=== PATIENT | male | born 1935 | race Caucasian/White ===

== ENCOUNTER 2018-10-17 17:09 | Inpatient (IN) | payer MEDICARE, OTHER ==
[2018-10-17] MEDS ORDERED: DILTIAZEM 25 MG INJ (17:13)
[2018-10-17] MEDS: DILTIAZEM 25 MG INJ IV ×2 (17:45→18:16)
[2018-10-17 17:48] LABS: ADD MAN DIFF? NO
[2018-10-17 17:50] LABS: BASOPHILS % 0.2 % (0.0-2.0); HEMATOCRIT 25.6 % (42.0-52.0); HEMOGLOBIN 8.2 g/dl (14.0-18.0); LYMPHOCYTES # 1.2 10^3/ul (0.8-2.9); LYMPHOCYTES % 9.6 % (15.0-51.0); MEAN CORPUSCULAR HEMOGLOBIN 33.6 pg (29.0-33.0); MEAN CORPUSCULAR VOLUME 104.9 fl (82.0-101.0); MEAN PLATELET VOLUME 10.3 fl (7.4-10.4); MONOCYTE # 1.4 10^3/ul (0.3-0.9); MONOCYTES % 11.3 % (0.0-11.0); NEUTROPHIL # 9.4 10^3/ul (1.6-7.5); NEUTROPHILS % 74.5 % (39.0-77.0); NUCLEATED RED BLOOD CELLS # 0.1 10^3/ul (0.0-0.0); NUCLEATED RED BLOOD CELLS% 0.7 /100WBC (0.0-0.0); PLATELET COUNT 524 10^3/UL (140-415); POSITIVE DIFF @See below; RED BLOOD COUNT 2.44 10^6/ul (4.70-6.10); RED CELL DISTRIBUTION WIDTH 14.3 % (11.5-14.5)
[2018-10-17 17:50] LABS: WHITE BLOOD COUNT 12.6 10^3/ul (4.8-10.8)
[2018-10-17 18:12] LABS: ALANINE AMINOTRANSFERASE 35 IU/L (13-69); ALBUMIN 2.6 g/dl (3.3-4.9); ALBUMIN/GLOBULIN RATIO 1.04; ALKALINE PHOSPHATASE 61 IU/L (42-121); ANION GAP 15 (5-13); ASPARTATE AMINO TRANSFERASE 22 IU/L (15-46); BILIRUBIN,INDIRECT 0.1 mg/dl (0-1.1); BILIRUBIN,TOTAL 0.1 mg/dl (0.2-1.3); BLOOD UREA NITROGEN 88 mg/dl (7-20); CALCIUM 7.8 mg/dl (8.4-10.2); CARBON DIOXIDE 11 mmol/L (21-31); CHLORIDE 111 mmol/L (97-110); CREATININE 4.63 mg/dl (0.61-1.24); GLUCOSE 94 mg/dl (70-220); POTASSIUM 4.1 mmol/L (3.5-5.1); SODIUM 137 mmol/L (135-144); TOTAL PROTEIN 5.1 g/dl (6.1-8.1)
[2018-10-17 18:37] LABS: B-TYPE NATRIURETIC PEPTIDE 152000 PG/ML (0-450)
[2018-10-17 19:27] LABS: Blood Gas IEPAP 15/5; Blood Gas PS 10; MODE MASK - BIPAP; MetHgb Venous 0.3 %; Sample Type Blood venous; Site VENOUS LINE; Venous COHb 0.2 %; Venous Fraction OxyHgb 88.7 %; Venous Oxygen Sat 89.1 mmHG (55.0-75.0); Venous Total Hemglobin 9.1 g/dl
[2018-10-17 19:29] LABS: PROTIME 68.5 Sec (11.9-14.9); PT RATIO 5.4
[2018-10-17] MEDS: FUROSEMIDE 20 MG INJ IV (19:30)
[2018-10-17 19:36] LABS: INR 7.76
[2018-10-17] MEDS ORDERED: DOCUSATE SODIUM 100 MG CAP PO (20:00)
[2018-10-17] MEDS ORDERED: BISACODYL (EC) 5 MG TAB PO (20:00)
[2018-10-17] MEDS ORDERED: ONDANSETRON 4 MG INJ IV (20:00)
[2018-10-17] MEDS ORDERED: morphine 2 MG INJ IV (20:00)
[2018-10-17] MEDS ORDERED: NACL 0.9% 3 ML SYG IV (20:00)
[2018-10-17 20:13] LABS: ADD UMIC YES; UR AMORPHOUS CRYSTAL FEW /HPF (NONE SEEN); UR ASCORBIC ACID 20 mg/dL (NEGATIVE); UR BACTERIA FEW /HPF (NONE SEEN); UR BILIRUBIN (Dip) NEGATIVE (NEGATIVE); UR BLOOD (Dip) NEGATIVE (NEGATIVE); UR CLARITY CLOUDY (CLEAR); UR COLOR YELLOW (YELLOW); UR GLUCOSE (Dip) NEGATIVE (NEGATIVE); UR KETONES (Dip) NEGATIVE (NEGATIVE); UR LEUKOCYTE ESTERASE (Dip) NEGATIVE Leu/ul (NEGATIVE); UR MUCUS FEW /HPF (NONE SEEN); UR NITRITE (Dip) NEGATIVE (NEGATIVE); UR RBC 4 /HPF (0-5); UR SPECIFIC GRAVITY (Dip) 1.015 (1.003-1.030); UR TOTAL PROTEIN (Dip) 3+ mg/dl (NEGATIVE); UR UROBILINOGEN (Dip) NEGATIVE (NEGATIVE); UR WBC 10 /HPF (0-5)
[2018-10-17 20:16] LABS: SODIUM,URINE RANDOM < 13 mmol/L (30-90)
[2018-10-17 20:33] LABS: ANISOCYTOSIS 1+ (0-0); BAND NEUTROPHILS #M 2.1 10^3/ul (0.0-0.6); BAND NEUTROPHILS % (M) 17 % (0-4); BURR CELLS 3+ (0-0); ERYTHROBLAST% (NRBC) (M) 1 % (0-0); GIANT THROMBO% (M) 1 % (0-0); HYPOCHROMASIA 1+ (0-0); LYMPHOCYTES #M 1.6 10^3/ul (0.8-2.9); LYMPHOCYTES % (M) 13 % (15-51); METAMYELOCYTES #M 0.1 10^3/ul (0.0-0.0); METAMYELOCYTES %M 1 % (0-0); MONOCYTE #M 1.6 10^3/ul (0.3-0.9); MONOCYTES % (M) 13 % (0-11); MYELOCYTES #M 0.1 10^3/ul (0.0-0.0); MYELOCYTES % (M) 1 % (0-0); PLATELET ESTIMATE NORMAL; POIKILOCYTOSIS 3+ (0-0); POLYCHROMASIA 1+ (0-0); SEG NEUT #M 7.2 10^3/ul (1.6-7.5); SEGMENTED NEUTROPHILS (M) % 55 % (39-77); SMUDGE%M 3 % (0-0)
[2018-10-17] MEDS: PIPER-TAZO 2.25 GM (PMX) 50 ML IVPB (21:00)
[2018-10-17] MEDS ORDERED: VANCOMYCIN IV PER PHARMACY XX (21:00)
[2018-10-17 21:06] LABS: OSMOLALITY,URINE 322 mOsm/kg (250-1200)
[2018-10-17] MEDS: VANCOMYCIN 2 GM in SOD CHLORIDE 0.9% 500 ML IVPB (21:53)
[2018-10-17 21:57] LABS: AADO2 Arterial 433.1 mmHg (7.0-24.0); Allen Test ACCEPTAB; Arterial Base Excess -13.8 mmol/L (-3.0-3); Arterial Blood Gas Oxygen Sat 99.4 mmHG (95.0-100.0); Arterial COHb 0.3 % (0.0-3.0); Arterial HCO3 12.6 mmol/L (22.0-26.0); Arterial MetHb 0.1 % (0.0-1.5); Blood Gas IEPAP 15/5; MODE MASK - BIPAP; Site Right Radial
[2018-10-17 22:05] LABS: LACTIC ACID 0.9 mmol/L (0.5-2.0)
[2018-10-17 22:06] LABS: CREATINE KINASE 35 IU/L (23-200)
[2018-10-17 22:18] LABS: CK INDEX 11.2
[2018-10-17 22:19] LABS: CK-MB 3.91 ng/ml (0.0-2.4)
[2018-10-17 22:53] LABS: OSMOLALITY 309 mOsm/kg (280-295)
[2018-10-17] MEDS ORDERED: LORAZEPAM 2 MG INJ IV (23:00)
[2018-10-18] MEDS: ALBUMIN HUMAN 25% 100 ML IV ×2 (02:46→04:05)
[2018-10-18] MEDS: morphine 2 MG INJ IV (02:53)
[2018-10-18] MEDS: FUROSEMIDE 40 MG INJ IV (05:26)
== END 2018-10-19 00:03 | disposition expired ==
LOC: E/R 17:09 → TEL 19:17
PROC: 3E0F7GC Introduction of Other Therapeutic Substance into Respiratory Tract, Via Natural or Artificial Opening (ICD-10-PCS; principal; 2018-10-17)
DX: I21.4 Non-ST elevation (NSTEMI) myocardial infarction (principal); I50.41 Acute combined systolic (congestive) and diastolic (congestive) heart failure; J96.00 Acute respiratory failure, unspecified whether with hypoxia or hypercapnia; A41.9 Sepsis, unspecified organism; N19 Unspecified kidney failure; D53.9 Nutritional anemia, unspecified; E03.9 Hypothyroidism, unspecified; Z66 Do not resuscitate; I48.91 Unspecified atrial fibrillation
CPT/HCPCS: 36415; 36600; 71045; 76775; 80053; 81001; 82550; 82553; 82803; 83605; 83880; 83930; 83935; 84300; 84484; 85025; 85610; 87040; 93005; 93306; 94660; 96374; 96376; 99291-25